=== PATIENT | male | born 1955 | race Caucasian/White ===

== ENCOUNTER 2018-10-21 14:05 | Day surgery (SDC) | payer MEDICARE, MEDICAID, SELFPAY ==
[2018-10-21] VITALS (8 sets, daily range): BP systolic 87–121; BP diastolic 46–72; PULSE 84–94; RESP 12–18; TEMP 36.3–37.1; O2SAT 88–97; BMI 33.0
--- NOTE | 2018-10-21 | PATH_ITS ---
[facility] Accession Number: [id number] . 01 Material submitted: . PART A: GASTRIC CARDIA PART B: DISTAL ESOPHAGUS PART C: PROXIMAL ESOPHAGUS PART D: MIDDLE ESOPHAGUS . 02 Diagnosis: A. 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 No intestinal metaplasia identified. Please see comment. . B. 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 No evidence of Silva's esophagus. Please see comment. . C. Proximal Esophagus, Biopsy: Invasive adenocarcinoma, moderately differentiated, intestinal type. Carcinoma undermines squamous epithelium. Please see comment. . D. Mid Esophagus, Biopsy: Invasive adenocarcinoma, moderately differentiated, intestinal type, arising in a background of ulcer. Please see comment. MRV/10/23/2018 . 02 Comment: As part of routine supplier quality engineer, Dr. Robin Rosario has reviewed parts A-D and agrees with the diagnoses. Dr. Goyal gave results to Ashleigh in Dr. Pedraza's office on 10/23/2018. HER2 will be performed on block C and the results reported as an addendum. . 02 Electronically signed: . Mary Kate Goyal MD, Pathologist NPI- [id number] . 01 Gross description: . Part A: GASTRIC CARDIA: Received in formalin are multiple fragment(s) of key, soft tissue measuring 0.7 x 0.3 x 0.2 cm in aggregate submitted entirely in 1 cassette(s) Part B: DISTAL ESOPHAGUS: Received in formalin is 1 fragment(s) of key, soft tissue measuring 0.4 x 0.3 x 0.3 cm submitted entirely in 1 cassette(s) Part C: PROXIMAL ESOPHAGUS: Received in formalin are multiple fragment(s) of key, soft tissue measuring 0.5 x 0.3 x 0.2 cm in aggregate submitted entirely in 1 cassette(s) Part D: MIDDLE ESOPHAGUS: Received in formalin is 1 fragment(s) of key, soft tissue measuring 0.4 x 0.3 x 0.2 cm submitted entirely in 1 cassette(s) /CKI /CKI . 02 Pathologist provided ICD-10: C15.9 . 02 CPT . 933503, 142239, 484429, [id number] Performed at: 01 [facility] [address] [address], [place], [place] [id number] MD Andry George MD Phone: [phone] Performed at: 02 [facility] [address] [place] [id number] MD Mary Kate Goyal MD Phone: [phone]
[2018-10-21] MEDS: SODIUM CHLORIDE 0.9% 1,000 ML 42 ML IV ×2 (14:55→16:40)
--- NOTE | 2018-10-21 15:09 | PM.PREOP ---
Pre-operative Note Interval Note Pre-op Check: Yes History & Physical Reviewed by Physician Changes: No ASA Class (for procedural sedation): II
--- NOTE | 2018-10-21 15:09 | PM.OP.ENDO ---
Operative Date/Time/Diagnoses Date of procedure: 10/21/18 Time of procedure: 15:09 Pre-op diagnosis: See indication and findings Procedure & Clinicians Study performed: EGD Same procedure as scheduled: Yes Indications: Dysphagia Surgeon: Dann Pedraza Procedure Notes Procedure in detail: After informed consent was obtained the patient was placed in the left lateral decubitus position. The video upper scope was placed into the oropharynx with the patient's help swelled into the esophagus. The esophagus stomach and duodenum were carefully examined. On withdrawal retroflexed view the GE junction was performed. The scope was removed. The patient tolerated the procedure well. Blood loss none Complications none Sedation mac per anesthesia Findings One. Complicated mass like strictured lesion beginning at 30 cm from the incisors and extending down to the GE junction at 40 cm from the incisors. This probably did not extend into the gastric cardia but there was some abnormal mucosa with ulceration there that was separately biopsied. The worst part of the stricture was from 35-40 cm. The remainder was more wide open with some areas of mass lesion. Biopsies were taken in the proximal, mid, and distal esophageal lesion. 2. Normal stomach 3. Normal duodenum We will go ahead and wait for biopsies to confirm but certainly will need workup to include chest and abdominal CT. Referral to Oncology will be made once biopsies return.
== END 2018-10-21 17:00 | disposition home or self-care (01) ==
PROVIDERS: PCP Internal Medicine; Visit Provider Internal Medicine Gastroenterology
PROC: 0DJ08ZZ Inspection of Upper Intestinal Tract, Via Natural or Artificial Opening Endoscopic (ICD-10-PCS; CPT 43235; principal; 2018-10-21 16:00)
DX: C15.9 Malignant neoplasm of esophagus, unspecified (principal); E11.9 Type 2 diabetes mellitus without complications; M54.5 Low back pain; F33.41 Major depressive disorder, recurrent, in partial remission; I10 Essential (primary) hypertension
CPT/HCPCS: 43239; 85060; 88305; J2704; J3010